=== PATIENT | male | born 1995 | race Two or more races ===

== ENCOUNTER 2019-11-19 22:13 | Emergency (ER) | payer OTHER ==
[2019-11-19 22:24] VITALS: BP 133/80; PULSE 72; TEMP 98.6; BMI 28.3
[2019-11-19] MEDS ORDERED: OSELTAMIVIR PHOSPHATE 75 MG CAPSULE ONE (22:26)
[2019-11-19] MEDS ORDERED: OSELTAMIVIR PHOSPHATE 75 MG CAPSULE PO ONE (22:26)
[2019-11-19] MEDS ORDERED: ACETAMINOPHEN 500 MG TABLET (FP) PO ONE (22:26)
[2019-11-19] MEDS ORDERED: ACETAMINOPHEN 500 MG TABLET (FP) ONE (22:27)
--- NOTE | 2019-11-19 22:31 | PDOC ---
History of Present Illness - General Chief Complaint: Cold Symptoms Stated Complaint: FLU Time Seen by Provider: 11/19/19 22:16 History Source: Patient Exam Limitations: No Limitations - History of Present Illness Initial Comments: 11/19/19 22:26 This is a 24-year-old male comes in complaining of influenza-like symptoms. Patient said that he has 2 family members that were recently diagnosed with influenza. And patient did not get his flu shot. Patient is complaining of body aches, headache, fevers, chills. Patient did take Motrin a couple hours ago prior to coming in and is afebrile here. Patient is otherwise healthy. Allergies: as per nursing notes Past Medical History: none Social history: Lives with family. No smoking. No alcohol. No illicit drugs. Surgical history: None General: + fevers and chills, no weakness, no weight loss HEENT: No change in vision. No sore throat,. No ear pain CardioVascular: no chest discomfort. No shortness of breath Respiratory:+ cough, no wheezing. Gastrointestinal: no nausea, vomiting, diarrhea or constipation, No rectal bleeding Genitourinary: No dysuria, hematuria, or frequency Musculoskeletal: No joint or muscle pain or swelling. body aches Neurologic: + headache, no vertigo, dizziness or loss of consciousness Psychiatric: nor depression Skin: No rashes or easy bruising Endocrine: no increased thirst or abnormal weight change Allergic: no skin or latex allergy All other systems reviewed and normal Exam: General: Well-nourished well-developed individual, no acute distress HEENT: Throat: Normal, tonsils normal, no erythema or exudate Neck: Supple, no meningeal signs, no lymphadenopathy Eyes::Pupils equal reactive and round, extraocular motion intact Chest: Nontender to palpation Cardiac: S1-S2 normal, regular rate and rhythm, no murmurs rubs or gallops Respiratory: Lungs clear to auscultation bilateral Abdomen: Soft, nondistended, normal bowel sounds, there is no tenderness on palpation diffusely Extremities: Warm, dry, no cyanosis, clubbing, or edema Skin: No rashes Neuro: Alert and oriented x3, CN II - XII intact, nonfocal exam with normal strength, normal sensation, normal reflexes, normal gait, Psych: Normal mood and affect Assessment and plan: This is a 24-year-old male with influenza after being exposed by other family members. Patient started on Tamiflu and given Tylenol for the body aches as he had recently taken Motrin. Prescription for Tamiflu sent to his pharmacy. Past History - Past Medical History Allergies/Adverse Reactions: Allergies Allergy/AdvReac Type Severity Reaction Status Date / Time No Known Allergies Allergy Verified 04/22/13 11:52 Home Medications: Ambulatory Orders Ibuprofen [Motrin -] 600 mg PO ONCE 11/19/19 Oseltamivir Phosphate [Tamiflu] 75 mg PO BID #10 capsule 11/19/19 COPD: No - Surgical History Appendectomy: Yes - Psycho Social/Smoking Cessation Hx Smoking Status: No Smoking History: Never smoked Number of Cigarettes Smoked Daily: 0 Substance Use Type: None *Physical Exam - Vital Signs Last Vital Signs Temp Pulse Resp BP Pulse Ox 98.6 F 72 16 133/80 100 11/19/19 22:17 11/19/19 22:17 11/19/19 22:17 11/19/19 22:17 11/19/19 22:17 Discharge - Discharge Information Problems reviewed: Yes Clinical Impression/Diagnosis: Influenza-like illness Condition: Stable Disposition: HOME - Admission No - Additional Discharge Information Prescriptions: Oseltamivir Phosphate [Tamiflu] 75 mg PO BID #10 capsule - Follow up/Referral Referrals: Lane Antony MD [Primary Care Provider] - - Patient Discharge Instructions Additional Instructions: Alternate Tylenol with Motrin every 4-6 hours as needed for body aches, fever and headache. Take Tamiflu twice a day for 5 days Return to the emergency department immediately with ANY new, persistent or worsening symptoms. Continue any medications as previously prescribed by your physician. You should follow up with your primary doctor as soon as possible regarding today's emergency department visit. . Please make sure your doctor reviews the results of your emergency evaluation. Thank you for coming to the Emergency Department today for your care. It was a pleasure to see you today. Please note that your evaluation is INCOMPLETE until you follow-up with your doctor. - Post Discharge Activity
== END 2019-11-19 22:35 | disposition home or self-care (01) ==
LOC: FER 22:13
DX: J11.1 Influenza due to unidentified influenza virus with other respiratory manifestations (principal)
CPT/HCPCS: 99281-25

== ENCOUNTER 2020-07-08 10:14 | Emergency (ER) | payer OTHER ==
[2020-07-08 10:19] VITALS: BP 110/69; PULSE 66; TEMP 98.3; BMI 26.9
[2020-07-08] MEDS ORDERED: LIDOCAINE VISCOUS 2% ORAL/TOP 20 ML UNIT-DOSE CUP MM ONE (10:30)
[2020-07-08] MEDS ORDERED: MAG HYDROX/AL HYDROX/SIMETH 30 ML UNIT-DOSE CUP PO ONE (10:30)
[2020-07-08] MEDS ORDERED: MAG HYDROX/AL HYDROX/SIMETH 30 ML UNIT-DOSE CUP ONE (10:34)
[2020-07-08] MEDS ORDERED: LIDOCAINE VISCOUS 2% ORAL/TOP 20 ML UNIT-DOSE CUP ONE (10:35)
--- NOTE | 2020-07-08 10:57 | PDOC ---
History of Present Illness - General Chief Complaint: Pain, Acute Stated Complaint: ABD PAIN 2MNTHS Time Seen by Provider: 07/08/20 10:22 - History of Present Illness Initial Comments: 07/08/20 10:52 24yo male with no pmhx, recently being worked up by Dr. Antony and a GI specialist for upper abd pain. Pt states for 2m he has felt a burning sensation in his upper abd. No radiation, but states sometimes he feels it in his throat. States he was told he has increased acid and was placed on a medication, which he started thursday for acid by his doctor. Pt has a follow up tomorrow with Dr. Antony. States he took the medication on thursday and thursday, but on thursday night he drank some beers and then yesterday he had worsening upper abd pain. States he was unable to eat yesterday because of the pain. Pt states he did not take the medication today, but c/o upper abd burning. No assoc n/v/d. No constipation. No f/c. No cp/sob. No cough. No back pain. Pt denies radiation of the pain. Pt denies urinary complaints. States he had lab work performed yesterday and has a follow up appt with his PMD for tomorrow. Pt denies all other complaints. Past History - Medical History Allergies/Adverse Reactions: Allergies Allergy/AdvReac Type Severity Reaction Status Date / Time No Known Allergies Allergy Verified 07/08/20 10:16 Home Medications: Ambulatory Orders NK [No Known Home Medication] 07/08/20 COPD: No - Surgical History Appendectomy: Yes - Psycho-Social/Smoking History Smoking Status: No Smoking History: Never smoked Number of Cigarettes Smoked Daily: 0 - Substance Abuse Hx (Audit-C & DAST Scrn) How often the patient has a drink containing alcohol: Monthly or less Number of drinks the patient has on a typical day: 1 or 2 How often the patient has six or more drinks on one occasion: Never Score: In Men: 4 or > Positive; In Women: 3 or > Positive: 1 Screen Result (Pos requires Nsg. Audit-10AR): Negative In the last yr the pt used illegal drug/Rx for NonMed reason: Yes Score: Yes response is considered Positive: 1 Screen Result (Positive result requires Nsg. DAST-10): Positive Review of Systems - Review of Systems Able to Perform ROS?: Yes Is the patient limited [place] proficient: No Constitutional: No: Chills, Fever HEENTM: No: Nose Congestion, Throat Pain Respiratory: No: Cough, Shortness of Breath Cardiac (ROS): No: Chest Pain, Lightheadedness ABD/GI: Yes: Other (burning in upper abd). No: Diarrhea, Nausea, Vomiting : No: Burning, Dysuria Integumentary: No: Rash Neurological: No: Headache, Numbness All Other Systems: Reviewed and Negative *Physical Exam - Vital Signs Last Vital Signs Temp Pulse Resp BP Pulse Ox 98.3 F 66 17 110/69 100 07/08/20 10:15 07/08/20 10:15 07/08/20 10:15 07/08/20 10:15 07/08/20 10:15 - Physical Exam General Appearance: Yes: Nourished, Appropriately Dressed. No: Apparent Distress HEENT: positive: EOMI, Normal Voice Neck: positive: Supple Respiratory/Chest: positive: Lungs Clear, Normal Breath Sounds. negative: Respiratory Distress Cardiovascular: positive: Regular Rhythm, Regular Rate, S1, S2. negative: Edema Gastrointestinal/Abdominal: positive: Soft, Tenderness (epigatric ttp without rebound or guarding). negative: Guarding, Rebound Male Genitalia: negative: CVAT Musculoskeletal: positive: Normal Inspection. negative: CVA Tenderness Extremity: positive: Normal Inspection. negative: Swelling, Calf Tenderness Integumentary: positive: Normal Color, Dry, Warm Neurologic: positive: Fully Oriented, Alert, Normal Mood/Affect, Normal Response ED Treatment Course - Medications Given in the ED: ED Medications Discontinued Medications Generic Name Dose Route Start Last Admin Trade Name Ganeshq PRN Reason Stop Dose Admin Al Hydroxide/Mg Hydroxide 30 ml 07/08/20 10:30 07/08/20 10:36 Mylanta Oral Suspension - PO 07/08/20 10:31 30 ml ONCE ONE Administration Lidocaine HCl 20 ml 07/08/20 10:30 07/08/20 10:36 Xylocaine 2% Viscous Oral - MM 07/08/20 10:31 20 ml ONCE ONE Administration Medical Decision Making - Medical Decision Making 07/08/20 10:55 a/p: 24yo male with epigastric burning x 2m -pt saw his PMD on thursday, Dr. Lane Antony who gave him an "acid medicine" which he took x2 days -also drank beer thursday, yesterday with worsening burning -this am came to the ER because he was bringing his son to the ER for eval and wanted to be checked out -pt states he had full labs yesterday. 07/08/20 10:57 labs from yesterday reivewed lipase, lft, renal function normal, normal blood counts pt given a gi cocktail in the ER -states all pain resolved with GI cocktail -stable for dc to home and follow up tomorrow with his PMD and with the gi specialist Discharge - Discharge Information Problems reviewed: Yes Clinical Impression/Diagnosis: Epigastric burning sensation Condition: Stable Disposition: HOME - Admission No - Follow up/Referral Referrals: Lane Antony MD [Staff Physician] - - Patient Discharge Instructions Patient Printed Discharge Instructions: DI for Epigastric Pain Additional Instructions: Please avoid alcohol and spicy food. Please take the medication Dr. Antony prescribed as prescribed. Please keep your appointment for tomorrow as scheduled. Please return to the ER with any further concerns or complaints. - Post Discharge Activity
== END 2020-07-08 11:01 | disposition home or self-care (01) ==
LOC: FER 10:14
DX: R10.13 Epigastric pain (principal)
CPT/HCPCS: 99283-25